=== PATIENT | female | born 1955 | race Caucasian/White ===

== ENCOUNTER → 2017-09-14 | Outpatient (CLI) | payer OTHER ==
--- NOTE | 2017-09-15 16:46 | MR ---
EXAMINATION TYPE: MR knee RT wo con DATE OF EXAM: 09/14/2017 COMPARISON: Outside radiographs 08/24/2017 HISTORY: 62-year-old female Right knee pain TECHNIQUE: Multiplanar, multisequence imaging of the right knee is performed without IV contrast. FINDINGS: The ACL is intact. There is an intrinsic increased signal within the PCL. The MCL and LCL complex are intact. There is a posterior root tear of the medial meniscus with additional irregular tear at the junction of the posterior horn and body of the medial meniscus. Mild extrusion of the meniscus. There is moder ate irregular cartilage loss within the weightbearing aspect of the medial compartment. Partial posterior root tear of the lateral meniscus with mild meniscal extrusion and an incomplete ra dial tear of the meniscal body. Mild diffuse thinning of lateral compartment articular cartilage volume with some focal moderate thic kness cartilage fissures along the mid weightbearing aspect of the lateral compartment. Mild to moderate irregular cartilage loss along the patellar facets within the patellofemoral compart ment. There is a small medial trochlear facet suggesting a component of trochlear dysplasia. Extensor mechanism is intact. Nonspecific anterior subcutaneous soft tissue swelling. Plevw-cl-zsflegrg knee joint effusion and a moderate-sized Murray's cyst measuring up to 5.4 x 3.1 cm. Posterior ganglion cyst along the PCL fibers measures 1.4 x 2.1 x 0.7 cm. Normal popliteal artery anatomy. Moderate diffuse muscular atrophy. No suspicious bone marrow replace ment. IMPRESSION: 1. Findings suggest a partial tear of the PCL. 2. Posterior root tear of the medial meniscus with mild meniscal extrusion. Additional tear at the ju nction of the posterior horn and body of the medial meniscus. 3. Partial posterior root tear of the lateral meniscus as well as incomplete inner margin radial tear of the meniscal body. 4. Mild to moderate tricompartmental osteoarthrosis, greatest in the medial and patellofemoral compar tments. 5. Mild trochlear dysplasia. 6. Small to moderate knee joint effusion, moderate-sized leaking Murray's cyst, and a 2.1 cm posterior ganglion cyst.
== END | disposition home or self-care (01) ==
LOC: RADMRIMAIN 12:36
PROVIDERS: ATTEND Orthopaedic Surgery
DX: M71.21 Synovial cyst of popliteal space [Baker], right knee (principal); S83.241A Other tear of medial meniscus, current injury, right knee, initial encounter; M17.11 Unilateral primary osteoarthritis, right knee; Q74.1 Congenital malformation of knee; M67.461 Ganglion, right knee; M25.861 Other specified joint disorders, right knee

== ENCOUNTER → 2017-09-24 | Outpatient (CLI) | payer OTHER ==
[2017-09-24 13:01] LABS: Basophils % (A) 1 %; Eosinophils # (A) 0.1 k/uL (0-0.7); Eosinophils % (A) 2 %; HCT 41.2 % (34.0-46.0); Lymphocytes # (A) 1.4 k/uL (1.0-4.8); Lymphocytes % (A) 22 %; MCH 30.8 pg (25.0-35.0); MCV 90.8 fL (80.0-100.0); Mean Platelet Volume 7.2; Monocytes # (A) 0.5 k/uL (0-1.0); Monocytes % (A) 7 %; Neutrophils # (A) 4.2 k/uL (1.3-7.7); Neutrophils % (A) 67 %; Platelet Count 280 k/uL (150-450); RBC 4.54 m/uL (3.80-5.40); RDW 13.1 % (11.5-15.5); WBC 6.3 k/uL (3.8-10.6)
[2017-09-24 13:14] LABS: Potassium 4.3 mmol/L (3.5-5.1)
== END | disposition home or self-care (01) ==
LOC: LABPAT 12:39
PROVIDERS: ATTEND Orthopaedic Surgery
DX: Z01.812 Encounter for preprocedural laboratory examination (principal); M23.91 Unspecified internal derangement of right knee
CPT/HCPCS: 36415; 80051; 85025

== ENCOUNTER 2017-10-07 10:27 | Day surgery (SDC) | payer OTHER ==
[2017-09-27 14:41] VITALS: BMI 40.3
--- NOTE | 2017-10-06 12:50 | HP ---
HISTORY AND PHYSICAL DATE OF SERVICE: Shama Hart is a 62-year-old patient seen with progressive right knee pain. We discussed treatment options. She elected to proceed with arthroscopy. Consent was obtained. PAST MEDICAL HISTORY: Hypertension. PAST SURGICAL HISTORY: Eye surgery. MEDICATIONS: Antihypertensive. ALLERGIES: PENICILLIN. SOCIAL HISTORY: Patient currently smokes 1 pack of cigarettes daily. PHYSICAL: Range of motion is -2 to 115 degrees. There is tenderness along the medial and lateral joint lines. There is positive medial Nancy's. There is a positive lateral Nancy's. Crepitus along the patellofemoral compartment with range of motion. Ligaments stable. Hip rotation without pain. Distal neurovascular exam intact. RIGHT KNEE RADIOGRAPHS: Revealed moderate osteoarthritic changes. A right knee MRI revealed medial and lateral meniscal tears as well as osteoarthritic changes. IMPRESSION: 1. Internal derangement, right knee with medial and lateral meniscal tears. 2. Right knee osteoarthritis. 3. Hypertension. 4. Tobacco use. PLAN: Right knee arthroscopy with partial meniscectomy and debridement. MMODL / IJN: [id number] /
[~2017-10-07 10:27] MED LIST: DEXAMETHASONE SOD PHOSPHATE 10 MG/ML 1 ML VIAL IV ONE; HYDROmorphone 0.5 MG/0.5 ML SYRINGE IVP PRN; LACTATED RINGERS 1,000 ML IV SCH; MIDAZOLAM 2 MG/2 ML VIAL IV PRN; MORPHINE SULFATE 4 MG/ML SYRINGE IV PRN; ONDANSETRON 4 MG/2 ML VIAL IVP ONE; ceFAZolin IN SWFI 2 GM/20 ML SYRINGE IVP ONE
[2017-10-07 11:28] VITALS: TEMP 97.3
[2017-10-07] MEDS ORDERED: LIDOCAINE 1% 20 ML VIAL (10MG/ML) FOR IV START INTRADERMA ONE (11:36)
[2017-10-07] MEDS ORDERED: SUCCINYLCHOLINE CHLORIDE 100 MG/5 ML SYR IV ONE (12:14)
[2017-10-07] MEDS ORDERED: PROPOFOL 10 MG/ML 20 ML VIAL IV ONE (12:14)
[2017-10-07] MEDS ORDERED: MIDAZOLAM 2 MG/2 ML VIAL ONE (12:14)
[2017-10-07] MEDS ORDERED: fentaNYL (PF) 50 MCG/ML 2 ML AMP ONE (12:14)
[2017-10-07] MEDS ORDERED: ROPIVACAINE 5 MG/ML 30 ML VIAL MISCELLANE ONE (12:34)
--- NOTE | 2017-10-07 13:00 | P.OP ---
Date of Procedure: 10/07/17 Preoperative Diagnosis: Internal derangement right knee Postoperative Diagnosis: 1. Tear medial and lateral meniscus right knee 2. Grade 3 chondromalacia medial femoral condyle right knee 3. Grade 2/3 chondromalacia lateral femoral condyle right knee 4. Grade 2 chondromalacia patella right knee 5. Reactive synovitis medial, lateral and suprapatellar compartments right knee Procedure(s) Performed: 1. Arthroscopic partial medial and lateral meniscectomy right knee 2. Arthroscopic chondroplasty medial femoral condyle right knee 3. Arthroscopic chondroplasty lateral femoral condyle right knee 4. Arthroscopic chondroplasty patella right knee 5. Arthroscopic partial synovectomy medial, lateral and suprapatellar compartments right knee Anesthesia: AMENAA, local Surgeon: Robert Villarreal Estimated Blood Loss (ml): 9 Pathology: none sent Condition: stable Disposition: PACU Indications for Procedure: 62-year-old patient seen with progressive right knee pain. After having treatment options discussed, she elected to proceed with arthroscopy. Operative Findings: see description of procedure Description of Procedure: Patient was taken to the operative suite. Patient underwent a general anesthetic by the department of anesthesia. Patient was given preoperative antibiotics. The right lower extremity was placed in a well-padded arthroscopic leg salas. The right leg was prepped and draped in the normal sterile orthopedic fashion. A lateral parapatellar and suprapatellar incision was made. Trochars were inserted. Arthroscopy was initiated. Suprapatellar pouch revealed thick reactive synovitis. The patellofemoral joint appeared to articulate congruently. There was grade 2 chondromalacia of the patella with some osteochondral tears present. The scope was guided into the medial gutter. No loose bodies or plica were identified. The scope was then guided into the medial compartment. A medial parapatellar incision was made. Trocar inserted followed by probe. There was a complex tear involving the posterior horn medial meniscus. There is area of grade 3 chondromalacia medial femoral condyle with some osteochondral tears present. There was reactive synovitis anteriorly. I performed a partial medial meniscectomy down to stable tissue. A chondroplasty of the medial femoral condyle was performed on a stable tissue followed by partial synovectomy. The residual meniscus and osteochondral surfaces were stable. Scope and probe were then guided into the intercondylar notch. Cruciates were identified, probed and found to be stable. The scope and probe were then guided into lateral compartment. There was a complex tear involving the posterior horn and midbody lateral meniscus. There were grade 2/ 3 chondromalacia changes of lateral femoral condyle with some osteochondral tears present. There was reactive synovitis anteriorly. I performed a partial lateral meniscectomy down to stable tissue. I performed a chondroplasty of the lateral femoral condyle down to stable tissue followed by partial synovectomy. The residual meniscus and osteochondral surfaces were stable. The scope was in guided back into the suprapatellar compartment. I introduced a motorized shaver into the super patellar compartment. I debrided some piecemeal fragments of meniscus I encountered. I performed a chondroplasty of the patella down to stable tissue. I performed a partial synovectomy. Shaver was removed. I took one more look on the entire knee, no residual debris. Instruments were now removed from the joint. The joint was infiltrated with .25 % Marcaine. Steri-Strips were applied to the portal sites. Sterile dressings were applied. The patient was placed into a ELENA hose. No tourniquet was utilized. The patient was awakened, transferred to a bed and taken to recovery stable satisfactory condition.
[2017-10-07 14:16] VITALS: RESP 18
[2017-10-07 15:06] VITALS: BP 129/73; PULSE 62
== END 2017-10-07 15:10 | disposition home or self-care (01) ==
LOC: OR 10:27
PROVIDERS: ATTEND Orthopaedic Surgery
DX: S83.231A Complex tear of medial meniscus, current injury, right knee, initial encounter (principal); S83.271A Complex tear of lateral meniscus, current injury, right knee, initial encounter; X58.XXXA Exposure to other specified factors, initial encounter; M94.261 Chondromalacia, right knee; M22.41 Chondromalacia patellae, right knee; M17.11 Unilateral primary osteoarthritis, right knee; M65.861 Other synovitis and tenosynovitis, right lower leg; I10 Essential (primary) hypertension; E78.5 Hyperlipidemia, unspecified; J44.9 Chronic obstructive pulmonary disease, unspecified; F17.210 Nicotine dependence, cigarettes, uncomplicated; Z79.899 Other long term (current) drug therapy; Z88.0 Allergy status to penicillin; Z85.43 Personal history of malignant neoplasm of ovary
CPT/HCPCS: 29880; J2250; J1100; J2405; J3010; J2795; J0330; J2704; J1170; J0690

== ENCOUNTER → 2019-01-24 | Outpatient (CLI) | payer OTHER ==
--- NOTE | 2019-01-24 16:14 | XR ---
EXAMINATION TYPE: XR thoracic spine complete DATE OF EXAM: 01/24/2019 COMPARISON: None HISTORY: Back pain TECHNIQUE: Three-view thoracic spine FINDINGS: T12 ribs are rudimentary. There are 12 thoracic type vertebral bodies. Pedicles are intact. Spondylosis is present. Diffuse degenerative disc changes are present throughout the thoracic spine. IMPRESSION: 1. Mild degenerative disc changes throughout the thoracic spine. 2. Spondylosis
--- NOTE | 2019-01-24 16:20 | XR ---
EXAMINATION TYPE: XR ribs RT w pa chest xray DATE OF EXAM: 01/24/2019 COMPARISON: Chest x-ray 01/16/2016 HISTORY: Back pain, rib pain TECHNIQUE: Frontal chest and 2 views right ribs FINDINGS: No displaced rib fractures are evident. Costochondral cartilage calcification is present. N o pneumothorax is evident. Heart size is normal. Pulmonary vasculature is normal. IMPRESSION: 1. No acute right rib abnormality.
== END | disposition home or self-care (01) ==
LOC: RADXRMAIN 14:54
PROVIDERS: ATTEND Family Medicine
DX: M47.814 Spondylosis without myelopathy or radiculopathy, thoracic region (principal); R07.81 Pleurodynia
CPT/HCPCS: 72072

== ENCOUNTER → 2019-09-28 | Outpatient (CLI) | payer OTHER ==
--- NOTE | 2019-09-28 12:05 | XR ---
EXAMINATION TYPE: XR chest 2V DATE OF EXAM: 09/28/2019 COMPARISON: 01/24/2019 HISTORY: Shortness of breath with history of asthma TECHNIQUE: Frontal and lateral views of the chest are obtained. FINDINGS: Strand-like bibasilar opacities are likely on the basis of atelectasis. Pulmonary hyperinf lation with underlying COPD as there is flattening of diaphragms on the lateral view. Moderate degene rative changes of the spine. Stable size of the cardiomediastinal silhouette. IMPRESSION: Strand-like bibasilar opacities, likely bibasilar atelectasis versus less likely develop ing pneumonia, with underlying COPD.
--- NOTE | 2019-09-28 12:08 | XR ---
EXAMINATION TYPE: XR cervical spine comp DATE OF EXAM: 09/28/2019 TECHNIQUE: Frontal, lateral, oblique, swimmers, and open mouth view of the cervical spine are obtaine d. HISTORY: R06.02 cervical pain COMPARISON: None FINDINGS: There is straightening of usual cervical lordosis. The cervical spine is visualized from C1 through C5 on the lateral view with nonvisualization of the vertebral body heights of C6 and C7. No abnormal prevertebral soft tissue thickening. There is multilevel uncovertebral hypertrophy and facet arthropathy resulting in minimal neural jef inal narrowing on the left at C4-5 and C5-6 and on the right at C3-4 and C4-5. Lung apices appear wel l aerated. IMPRESSION: 1. Moderate degenerative disc disease of the cervical spine overall however there is only minimal rad iographic neural foraminal narrowing at multiple levels detailed above. Degree of neural foraminal na rrowing could be more accurately assessed with MRI. 2. Straightening of usual cervical lordosis that can be seen in muscular strain/spasm or secondary to patient positioning.
== END | disposition home or self-care (01) ==
LOC: RADXRMAIN 10:56
PROVIDERS: ATTEND Family Medicine
DX: R91.8 Other nonspecific abnormal finding of lung field (principal); M50.30 Other cervical disc degeneration, unspecified cervical region; M40.40 Postural lordosis, site unspecified
CPT/HCPCS: 71046; 72050

== ENCOUNTER → 2020-01-02 | Outpatient (CLI) | payer OTHER ==
--- NOTE | 2020-01-02 18:25 | CT ---
EXAMINATION TYPE: CT abdomen pelvis wo con DATE OF EXAM: 01/02/2020 COMPARISON: None INDICATION: Lower abdominal/pelvic pain. DLP: 1269.6 mGycm, Automated exposure control for dose reduction was used. CONTRAST: 0 mL of Isovue 300. Study performed with Oral Contrast TECHNIQUE: Axial images were obtained from above the diaphragm to the pubic rami in the axial plane a t 5 mm thick sections. Reconstructed images are reviewed on the computer in the coronal plane. FINDINGS: Limited CT sections are obtained the lung bases. The lung bases are clear. CT ABDOMEN: Liver: Normal Spleen: Normal Pancreas: Normal Adrenal glands: The adrenal glands are normal. Gallbladder: Normal Kidneys: No masses are evident. No hydronephrosis is present. There is an exophytic cyst on the mid left kidney measuring 4 cm and 11 Hounsfield units. There is a nonobstructing superior pole left re nal stone measuring 0.2 cm. Aorta: Vascular calcification is within the aorta. Inferior vena cava: Normal. CT PELVIS: Loops of bowel within the abdomen and pelvis are normal. There are loops of bowel which are incom pletely distended or lack oral contrast limiting their evaluation. Oral contrast extends to nearly th e terminal ileum. Appendix: Not visualized. No suspicious inflammatory changes or dilated tubular structures are eviden t. Urinary bladder: Decompressed with limited evaluation Genitourinary structures: Uterus and ovaries are not identified. Osseous structures: No suspicious lytic or sclerotic lesions. Sacroiliac joint degenerative changes a re evident. 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 IMPRESSIONS: 1. Left renal cyst. 2. Nonobstructing left renal stone. 3. No suspicious abnormality to account for lower pelvic pain
== END | disposition home or self-care (01) ==
LOC: RADCTMAIN 15:40
PROVIDERS: ATTEND Family Medicine
DX: N28.1 Cyst of kidney, acquired (principal); N20.0 Calculus of kidney
CPT/HCPCS: 74176

== ENCOUNTER → 2020-09-25 | Outpatient (CLI) | payer OTHER | END | disposition home or self-care (01) | LOC: RADMRIMAIN 13:59 | PROVIDERS: ATTEND Family Medicine | DX: Z53.9 Procedure and treatment not carried out, unspecified reason (principal) ==

== ENCOUNTER → 2021-07-14 | Day surgery (SDC) | payer MEDICARE, OTHER ==
[2021-07-09 16:04] VITALS: BMI 42.7
[~2021-07-14] MED LIST changes: -DEXAMETHASONE SOD PHOSPHATE 10 MG/ML 1 ML VIAL IV ONE; -HYDROmorphone 0.5 MG/0.5 ML SYRINGE IVP PRN; -LACTATED RINGERS 1,000 ML IV SCH; -MIDAZOLAM 2 MG/2 ML VIAL IV PRN; -MORPHINE SULFATE 4 MG/ML SYRINGE IV PRN; -ONDANSETRON 4 MG/2 ML VIAL IVP ONE; +SODIUM CHLORIDE 0.9% 1,000 ML IV SCH; -ceFAZolin IN SWFI 2 GM/20 ML SYRINGE IVP ONE
[2021-07-14 07:58] VITALS: TEMP 98.4
[2021-07-14 11:10] VITALS: BP 160/67; PULSE 64; RESP 16
--- NOTE | 2021-07-14 14:33 | P.EPPROC ---
- EP Procedure Note Electrophysiology Procedure Note: Diagnosis Recurrent presyncope Twelve-lead EKG shows sinus rhythm with normal MN interval and nonspecific ST-T abnormalities Normal QT interval Tilt table test per protocol Baseline blood pressure 155/76. His mercury Baseline heart rate is 60 beats a minute Patient is was tilted upright at an angle of 70 per protocol Reported mild dizziness upon standing in line thereafter her blood pressure remained in the 150-160 mmHg systolic range Diastolics remained in the 70s Heart rates remained in the 70s sinus rhythm No symptoms noted No evidence for neurocardiogenic syncope She was laid supine at the end of the procedure Impression Twelve-lead EKG. Very minor ST segment abnormalities Elevated blood pressure readings during tilt table testing No evidence for neurocardiogenic syncope
== END ==
LOC: CATHEP 07:32
PROVIDERS: ATTEND Internal Medicine Clinical Cardiac Electrophysiology
DX: R55 Syncope and collapse (principal); Z79.51 Long term (current) use of inhaled steroids; Z20.822 Contact with and (suspected) exposure to COVID-19; Z79.899 Other long term (current) drug therapy
CPT/HCPCS: 87635; 93660